=== PATIENT | female | born 1945 | race Caucasian/White ===

== ENCOUNTER → 2018-07-04 | Day surgery (SDC) | payer MEDICARE, OTHER ==
[~2018-07-04] MED LIST: Lidocaine 1% PF 2 ML SDV INJECT SCH; Pilocarpine 4% Ophth Soln 15 ML Bot EYELF SCH
[2018-07-04] MEDS: Polymyxin B/Trimethoprim 10 ML Bottle EYELF SCH ×3 (10:55→12:50)
[2018-07-04] MEDS: Brimonidine 0.2% Ophth Soln 5 ML Bottle EYELF SCH ×3 (10:58→12:50)
[2018-07-04] MEDS: Phenylephrine 2.5% Ophth Soln 2 ML Bot EYELF SCH ×5 (11:05→12:19)
--- NOTE | 2018-07-04 11:08 | PCM.PREANE ---
Preanesthetic Assessment - Procedure Proposed Procedure: cataract left - Anesthesia/Transfusion/Family Hx Anesthesia History: Prior Anesthesia Without Reaction Family History of Anesthesia Reaction: No Transfusion History: No Prior Transfusion(s) - Review of Systems General: No Symptoms Pulmonary: Shortness of Breath, Cough Cardiovascular: Dyspnea on Exertion (normal) Gastrointestinal: No Symptoms Neurological: No Symptoms Other: Reports: Thyroid Problems, Sinus Problem, Depression, Anxiety - Physical Assessment NPO Status Date: 07/03/18 (sip of water withpills at 0300) NPO Status Time: 21:30 Pulse: 58 O2 Sat by Pulse Oximetry: 97 Respiratory Rate: 16 Blood Pressure: 138/59 Temperature: 98 F Height: 5 ft 3 in Weight: 72.575 kg ASA Class: 3 Mental Status: Alert & Oriented x3 Airway Class: Mallampati = 1 Dentition: Reports: Dentures (full with partial bottom) Thyro-Mental Finger Breadths: 3 Mouth Opening Finger Breadths: 3 ROM/Head Extension: Full Lungs: Clear to Auscultation, Normal Respiratory Effort, Decreased Breath Sounds Cardiovascular: Regular Rate, Regular Rhythm - Allergies Allergies/Adverse Reactions: Allergies Allergy/AdvReac Type Severity Reaction Status Date / Time Cephalosporins Allergy Cannot Verified 07/03/18 15:24 Remember niacin Allergy Anaphylactic Verified 07/03/18 15:24 Shock Penicillins Allergy Cannot Verified 07/03/18 15:24 Remember - Blood Blood Available: No - Anesthesia Plan Beta Óscar: Nadolol Med Last Dose Date: 07/04/18 Med Last Dose Time: 03:30 - Acknowledgements Anesthesia Type Planned: MAC Pt an Appropriate Candidate for the Planned Anesthesia: Yes Alternatives and Risks of Anesthesia Discussed w Pt/Guardian: Yes Pt/Guardian Understands and Agrees with Anesthesia Plan: Yes PreAnesthesia Questionnaire HEENT History: Reports: Impaired Vision Cardiovascular History: Reports: Hypertension, SOB on Exertion Respiratory History: Reports: SOB (with exertion) Gastrointestinal History: Reports: GERD Psychiatric History: Reports: Anxiety, Depression Oncologic (Cancer) History: Reports: Basal Cell Carcinoma, Other (See Below) ( skin ca hand) - Past Surgical History HEENT Surgical History: Reports: Adenoidectomy, Tonsillectomy, Other (See Below ) (ear) Cardiovascular Surgical History: Reports: Coronary Artery Stent (angioplasty), Other (See Below) GI Surgical History: Reports: Appendectomy, Cholecystectomy Female Surgical History: Reports: Hysterectomy - SUBSTANCE USE Smoking Status *Q: Former Smoker Tobacco Use Within Last Twelve Months: No Second Hand Smoke Exposure: No Days Per Week of Alcohol Use: 1 (rare) Recreational Drug Use History: No - HOME MEDS Home Medications: Home Meds ALPRAZolam [Alprazolam] 0.5 mg PO TID PRN 05/31/18 [History] Dextran 70/Hypromellose [Artificial Tears] 1 drop EYEBOTH ASDIRECTED 05/31/18 [ History] FLUoxetine HCl [Prozac] 20 mg PO DAILY 05/31/18 [History] Levothyroxine Sodium [Synthroid] 112 mcg PO DAILY 05/31/18 [History] Nadolol [Corgard] 80 mg PO DAILY 05/31/18 [History] Omeprazole 20 mg PO DAILY 05/31/18 [History] Potassium Chloride [Klor-Con M20] 20 meq PO DAILY 05/31/18 [History] Spironolact/Hydrochlorothiazid [Aldactazide 25-25] 1 tab PO DAILY 05/31/18 [ History] - CURRENT (IN HOUSE) MEDS Current Meds: Current Medications Brimonidine Tartrate (Alphagan 0.2% Ophth Soln) 0 ml EYELF ASDIRECTED CATHERINE Stop: 07/04/18 18:00 Last Admin: 07/04/18 10:58 Dose: 1 drop Lidocaine HCl (Xylocaine-Mpf 1%) 0 ml INJECT ASDIRECTED CATHERINE Stop: 07/04/18 18:00 Phenylephrine HCl (Mendoza-Synephrine 2.5% Ophth Soln) 0 ml EYELF ASDIRECTED CATHERINE Stop: 07/04/18 18:00 Pilocarpine HCl (Pilocar 4% Ophth Soln) 0 ml EYELF ASDIRECTED CATHERINE Stop: 07/04/18 18:00 Polymyxin/Trimethoprim Sulfate (Polytrim Ophth Soln) 0 ml EYELF ASDIRECTED CATHERINE Stop: 07/04/18 18:00 Last Admin: 07/04/18 10:55 Dose: 1 drop Tetracaine HCl (Tetracaine 0.5% Steri-Unit Michelle) 0 ml EYELF ASDIRECTED CATHERINE Stop: 07/04/18 18:00 Tropicamide (Mydriacyl 1% Ophth Soln) 0 ml EYELF ASDIRECTED CATHERINE Stop: 07/04/18 18:00
[2018-07-04] MEDS: Tropicamide 1% Ophth Soln 15 ML Bottle EYELF SCH ×4 (11:11→11:56)
[2018-07-04] MEDS: Tetracaine HCl/PF 0.5% 4 ML Bottle EYELF SCH ×4 (12:02→12:38)
--- NOTE | 2018-07-04 12:51 | PCM48HPAN ---
Post Anesthesia Note - EVALUATION WITHIN 48HRS OF ANESTHETIC Vital Signs in Normal Range: Yes Patient Participated in Evaluation: Yes Respiratory Function Stable: Yes Airway Patent: Yes Cardiovascular Function Stable: Yes Hydration Status Stable: Yes Pain Control Satisfactory: Yes Nausea and Vomiting Control Satisfactory: Yes Mental Status Recovered: Yes Pulse Rate: 54 SaO2: 94 Resp Rate: 18 Temperature: 36.6 C Blood Pressure: 132/66
[2018-07-04 13:21] VITALS: BP 149/63
== END ==
LOC: JD.SDS 09:37
PROVIDERS: ATTEND Ophthalmology
DX: H25.812 Combined forms of age-related cataract, left eye (principal); I10 Essential (primary) hypertension; K21.9 Gastro-esophageal reflux disease without esophagitis; F41.9 Anxiety disorder, unspecified; Z79.899 Other long term (current) drug therapy; Z98.41 Cataract extraction status, right eye; Z96.1 Presence of intraocular lens; Z88.1 Allergy status to other antibiotic agents; Z88.0 Allergy status to penicillin
CPT/HCPCS: 66984; A9270; C1780; J2001